=== PATIENT | female | born 1995 | race Caucasian/White ===

== ENCOUNTER 2018-02-16 16:49 | Emergency (ER) | END 2018-02-16 18:57 | disposition home or self-care (01) ==

== ENCOUNTER 2019-02-03 15:54 | Emergency (ER) | payer SELFPAY ==
[~2019-02-03] VITALS: Wt 92.7 kg
== END 2019-02-03 22:51 | disposition left against medical advice (07) ==
LOC: FTE 15:54
DX: Z53.21 Procedure and treatment not carried out due to patient leaving prior to being seen by health care provider (principal)